=== PATIENT | female | born 1950 | race Caucasian/White ===

== ENCOUNTER 2016-12-27 23:12 | Emergency (ER) | payer OTHER ==
[~2016-12-27] VITALS: Ht 172.7 cm; Wt 140.0 kg
[2016-12-27 23:28] VITALS: BP 117/76; PULSE 87; RESP 16; O2SAT 96
--- NOTE | 2016-12-28 00:21 | ED.REPORT ---
HPI-Rash / Abscess Date of Service Dec 28, 2016 ED Provider: Sang Ness MD Pt is a 66 y/o female with a hx of basal cell carcinoma on her nose, CO, and DM who presents to the ED complaining of a rash. This is characterized as a diffuse , erythremic, itching rash on her back. This began after the pt took 1 tablet of Sulfa at 12:00 today. She reports taking the Sulfa drugs for cellulitis on her L lower leg, which has worsened since taking the Bactrim. Patient denies oral swelling, SOB, or wheezing. Nursing Notes Stated Complaint: POSS DRUG REACTION Chief Complaint: General Complaint Nursing Notes Reviewed: Yes Allergies: Coded Allergies: NSAIDS (Non-Steroidal Anti-Inflamma (Verified Allergy, Unknown, 12/27/16) Sulfa (Sulfonamide Antibiotics) (Verified Allergy, Unknown, 12/27/16) trazodone (Verified Allergy, Unknown, 12/27/16) Scheduled Clindamycin (Clindamycin) 300 Mg Capsule 600 MG PO TID Loratadine (Claritin) 10 Mg Capsule 10 MG PO DAILY General Time Seen by MD: 00:20 Chief Complaint Rash Hx Obtained From: Patient Arrived By: Walk-in Onset Occurred: 9 - 12 hours ago Context of Onset: Allergy, medication Symptom Duration: 9 - 12 hours Recent Healthcare: No recent doctor visit, No recent hospitalization Similar Sx Previous: No Past Medical History Past Medical History Basal cell carcinoma on tip of nose CO diabetes Past Surgical History left orbital Smoking History Current Every Day Smoker Social History Alcohol Use: "Social" Drug Use: THC (daily) Ambulatory Status Independent Review of Systems Respiratory: Denies: Non-productive cough, Prod cough, clear, Shortness of breath, Wheezing Cardiovascular: Denies: Chest pain GI: Denies: Abdominal pain, Nausea, Vomiting Musculoskeletal: Denies: Back pain, Neck pain Skin: Reports Rash Complete sys rev & neg: except as marked. Physical Exam Initial Vital Signs Vital Signs (First) Date Time Temp Pulse Resp B/P Pulse Ox O2 Delivery O2 Flow Rate FiO2 12/27/16 23:28 36.8 87 16 117/76 96 Room Air Initial VS: Reviewed, Vital signs normal Neck: Supple, Full range of motion Neurologic: Alert, Oriented, Nonfocal Psychiatric: Mood/affect normal, Behavior normal, Normal thought content General/Constitutional: Awake, Alert, No acute distress Skin: Warm, Dry Color / Condition: Positive: Rash present Rash / Lesion Notes: confluent maculopapular rash on the back to the base of the scapula ENT: Airway patent Mouth: Positive: Mucous membranes dry 1 cm necrotic basal cell carcinoma on tip of nose Respiratory / Chest: Atraumatic, Breath sounds NL, Breath sounds = bilat, No respiratory distress Cardiovascular: Heart rate NL, Regular rhythm, Heart sounds NL Lower Extremity / Pelvis / MS: Full range of motion Right Leg / Calf: Positive: Swelling present... Left Leg / Calf: Positive: Swelling present... Cellulitis on lower L leg Re-Eval/Medical Decision Med Decision/Clinical Course 66-year-old presents with rash on back after taking sulfa antibiotic. Cellulitis of the leg presents also antecedent to taking the med. Discontinue sulfa. Begin clindamycin. Claritin and when necessary Benadryl, Kenalog cream to rash 3 times a day. Follow up with PCP. Source of Hx: Old records Re-Evaluation/Progress : Time of Eval: 00:20 Re-Evaluation/Progress Note: Discussed plan for discharge. Patient understands and agrees with plan. F/U instructions and RTER warnings given. All questions addressed at this time. Counseled Regarding: Diagnosis, Need for follow-up, When/why to return to ED Discharge & Departure Impression: Primary Impression: Allergic drug reaction Encounter type: initial encounter Qualified Code: T78.40XA - Allergy, unspecified, initial encounter Additional Impression: Maculopapular rash Disposition: Home Discharge Condition All VS Reviewed: Yes Condition: Stable Patient Instructions: Adverse Drug Reaction (ED) Additional Instructions: We must assume that you are sulfa allergic at this point. Stop sulfa. Begin clindamycin two capsules three times daily. Begin Claritin daily. May use Benadryl additionally for itch as needed. Begin Kenalog cream three times daily to the affected area. Follow-up with your doctor in the office. Elevate the leg whenever possible to reduce edema. Wear compressive stockings during the day when up. Remove the stockings at night to sleep. Soccer hose would be a reasonable commercially available example of compressive stockings. These can be obtained at [employer], and [employer]. Referrals: [facility] Scribe Attestation Portions of this note were transcribed by Maty Styles and Wallace Waldron. I, Dr. Ness, personally performed the history, physical exam and medical decision-making; I reviewed and confirmed the accuracy of the information in the transcribed note. copies to: [facility] Sang Ness MD Dec 28, 2016 00:21 Maty Styles Dec 28, 2016 00:28 WALLACE WALDRON Dec 28, 2016 01:51
[2016-12-28] MEDS ORDERED: Triamcinolone 0.1% 30 Gm Cream TOPICAL SCH (00:40)
[2016-12-28] MEDS ORDERED: Triamcinolone 0.1% 30 Gm Cream TOPICAL ONE (00:45)
[2016-12-28] MEDS ORDERED: LORA10CA PO (00:59)
[2016-12-28] MEDS ORDERED: CLIN-78 PO (00:59)
[2016-12-28 01:25] VITALS: BP 128/89; PULSE 75; RESP 18; O2SAT 95
== END 2016-12-28 01:28 | disposition home or self-care (01) ==
LOC: SED 23:12
DX: R21 Rash and other nonspecific skin eruption (principal); L29.9 Pruritus, unspecified; T36.8X5A Adverse effect of other systemic antibiotics, initial encounter; Y93.89 Activity, other specified; Y92.89 Other specified places as the place of occurrence of the external cause; Y99.8 Other external cause status; E11.59 Type 2 diabetes mellitus with other circulatory complications; I25.2 Old myocardial infarction; F17.200 Nicotine dependence, unspecified, uncomplicated; Z88.2 Allergy status to sulfonamides; Z88.8 Allergy status to other drugs, medicaments and biological substances